=== PATIENT | male | born 1970 | race Caucasian/White ===

== ENCOUNTER 2017-01-19 19:46 | Emergency (ER) | payer OTHER | END 2017-01-19 22:54 | disposition home or self-care (01) | LOC: ER1 19:46 | DX: S39.012A Strain of muscle, fascia and tendon of lower back, initial encounter (principal); I10 Essential (primary) hypertension; V43.52XA Car driver injured in collision with other type car in traffic accident, initial encounter | CPT/HCPCS: 72131; 99285 ==